=== PATIENT | female | born 1990 | race Hispanic/Latino ===

== ENCOUNTER 2019-12-28 13:08 | Inpatient (IN) ==
[2019-12-28] MEDS ORDERED: PEPCID IV PRN (14:07)
[2019-12-28] MEDS ORDERED: AMPICILLIN 2 GM in NS 100 ML IV ONE (14:07)
[2019-12-28] MEDS ORDERED: STADOL IV PRN (14:07)
[2019-12-28] MEDS ORDERED: KEFZOL 2 GM/D5W 2 GM/50 ML IVPB IV PRN (14:07)
[2019-12-28] MEDS ORDERED: PEPCID PO PRN ×2 (14:07)
[2019-12-28] MEDS ORDERED: REGLAN PO PRN (14:07)
[2019-12-28] MEDS ORDERED: ZOFRAN IV PRN (14:07)
[2019-12-28] MEDS ORDERED: LR 500 ML IV ONE (14:07)
[2019-12-28] MEDS ORDERED: TYLENOL PO PRN (14:07)
[2019-12-28] MEDS ORDERED: PITOCIN 30 UNITS/NS 30 UNIT/500 ML IV.SOLN IV SCH ×2 (14:15→16:30)
[2019-12-28] MEDS ORDERED: LR 1,000 ML IV SCH (14:15)
[2019-12-28] MEDS ORDERED: SODIUM CHLORIDE 0.9% INJ SCH (14:15)
[2019-12-28 14:30] LABS: URINE SOURCE VOIDED
[2019-12-28 14:58] LABS: BASO# 0.03 X1000 (0.0-0.2); BASO% 0.2 % (0.0-0.8); EOS# 0.28 X1000 (0.0-0.7); EOS% 2.3 % (0.0-10.0); HEMATOCRIT 38.1 % (37.0-47.0); HEMOGLOBIN 12.8 g/dL (12.0-16.0); IMM GRAN# 0.05 X1000 (0.0-0.04); IMM GRAN% 0.4 % (0.0-0.5); LYMPH# 3.69 X1000 (1.2-3.4); LYMPH% 30.1 % (20.5-51.1); MCH 27.4 PG (27-31); MCHC 33.6 g/dL (33-37); MCV 81.6 FL (81-99); MONO# 1.23 X1000 (0.11-0.59); MPV 11.7 FL (7.4-10.4); NEUT# 6.96 X1000 (1.4-6.5); PLT 348 X1000 (130-400); RBC 4.67 XMIL (4.2-5.4); RDW 16.5 % (11.5-14.5); WBC 12.24 X1000 (4.8-10.8)
[2019-12-28] MEDS ORDERED: XYLOCAINE-MPF 1% INJ ONE (15:01)
[2019-12-28 15:02] LABS: BILIRUBIN URINE NEGATIVE (NEGATIVE); BLOOD URINE MODERATE (NEGATIVE); COLOR YELLOW; GLUCOSE URINE NEGATIVE (NEGATIVE); KETONE URINE NEGATIVE (NEGATIVE); LEUKOCYTES URINE NEGATIVE (NEGATIVE); NITRITE URINE NEGATIVE (NEGATIVE); PROTEIN URINE NEGATIVE (NEGATIVE); SP GRAVITY URINE 1.021; TURBIDITY URINE CLEAR (CLEAR); UROBILINOGEN URINE NORMAL (NORMAL)
[2019-12-28 15:14] LABS: UR AMPHETAMINES QUAL NONE DETECTED (NONE DETECT); UR BARBITUATES QUAL NONE DETECTED (NONE DETECT); UR BENZODIAZEPIN QUAL NONE DETECTED (NONE DETECT); UR CANNABINOIDS QUAL NONE DETECTED (NONE DETECT); UR COCAINE QUAL NONE DETECTED (NONE DETECT); UR METHADONE QUAL NONE DETECTED (NONE DETECT); UR OPIATES QUAL NONE DETECTED (NONE DETECT); UR OXYCODONE QUAL NONE DETECTED (NONE DETECT); UR PCP QUAL NONE DETECTED (NONE DETECT)
[2019-12-28] MEDS ORDERED: PITOCIN 20 UNITS/NS 20 UNITS/1,000 ML IV.SOLN ONE (15:48)
[2019-12-28] MEDS ORDERED: PERI MEDS (DERMOPLAST/NUPERCAINAL/TUCKS) MISC PRN (16:23)
[2019-12-28] MEDS ORDERED: BOOSTRIX VACCINE IM ONE (16:23)
[2019-12-28] MEDS ORDERED: NORCO-10 PO PRN (16:23)
[2019-12-28] MEDS ORDERED: BENADRYL IV PRN (16:23)
[2019-12-28] MEDS ORDERED: XYLOCAINE-MPF 1% INJ PRN (16:23)
[2019-12-28] MEDS ORDERED: M-M-R II VACCINE SUBQ ONE (16:23)
[2019-12-28] MEDS ORDERED: MINERAL OIL PO PRN (16:23)
[2019-12-28] MEDS ORDERED: BENADRYL PO PRN (16:23)
[2019-12-28] MEDS ORDERED: ATARAX PO PRN (16:23)
[2019-12-28] MEDS ORDERED: HYDROXYZINE IM PRN (16:23)
[2019-12-28] MEDS ORDERED: PITOCIN IM PRN (16:23)
[2019-12-28] MEDS ORDERED: AMBIEN PO PRN (16:23)
[2019-12-28] MEDS ORDERED: CYTOTEC PO PRN (16:23)
[2019-12-28] MEDS ORDERED: PITOCIN 20 UNITS/NS 20 UNITS/1,000 ML IV.SOLN IV SCH (16:30)
--- NOTE | 2019-12-28 18:04 | HISTORY AND PHYSICAL ---
HISTORY OF PRESENT ILLNESS: The patient is a 29-year-old 4, para 2, at 38.5 weeks gestation who presents to Labor and Delivery in active phase labor. She presented with painful uterine contractions at 4 cm dilated, 100% effaced, intact membranes. The patient is group B strep positive. Two vaginal deliveries in the past.Pt is known to be GBS positive. PREVIOUS MEDICAL HISTORY: Asthma. PREVIOUS SURGICAL HISTORY: Negative. ALLERGIES TO MEDICINES: None. MEDICINES: vitamins and albuterol inhaler. SOCIAL HISTORY: Negative for smoking, alcohol, or drugs. OB HISTORY: Pertinent for 2 normal spontaneous vaginal deliveries at term. Current , group B strep positive. FAMILY HISTORY: Negative for diabetes, hypertension, or heart disease. REVIEW OF SYSTEMS: Negative for chest pain, shortness of breath, headache, cough, runny nose, fever, sore throat. PHYSICAL EXAMINATION: GENERAL: Shows a well-developed, well-nourished woman appearing her stated age, in acute distress secondary to labor. HEENT: Grossly normal. LUNGS: Breathing unlabored. HEART: Regular rate and rhythm. ABDOMEN: Gravid. PELVIC: Exam is complete. Membranes ruptured at the perineum. EXTREMITIES: Without clubbing, cyanosis, or edema. ASSESSMENT: A 29-year-old 4, para 2, at term, in active phase labor. 1. Group B Streptococcus positive. She received 1 dose of group B strep prophylaxis prior to delivery. 2. well-being reassured. Category 1 tracing throughout. 3. Anticipate normal spontaneous vaginal delivery. Estimated weight 3500 g. [facility]
[2019-12-28] MEDS ORDERED: AMPICILLIN 1 GM in NS 50 ML IV SCH (18:09)
--- NOTE | 2019-12-28 18:24 | OPERATIVE NOTE ---
PROCEDURE: Normal spontaneous vaginal delivery. The patient is a 29-year-old, 4, para 2, at term who presented in active phase labor at 4 to 5 cm dilated, made rapid progress, receiving only 1 dose of antibiotic before becoming completely dilated. Membranes were ruptured spontaneously at complete and +3 and the patient delivered with no anesthesia over second-degree laceration. The infant delivered without difficulty complication and handed to the maternal abdomen. The cord was clamped x2 and cut. The placenta delivered intact, three-vessel cord spontaneously. The perineum is repaired with 2-0 chromic in the usual fashion. Post procedure the perineum was inspected and intact and hemostatic. ESTIMATED BLOOD LOSS: 300 mL. Apgars 9 and 9, 7 pounds 12 ounces.
[2019-12-28] MEDS: MOTRIN PO PRN (19:55)
[2019-12-28] MEDS: PERICOLACE PO SCH (22:53)
[2019-12-29] MEDS: NORCO-5 PO PRN ×2 (00:38→23:18)
[2019-12-29 04:49] LABS: BASO# 0.03 X1000 (0.0-0.2); BASO% 0.2 % (0.0-0.8); EOS# 0.29 X1000 (0.0-0.7); EOS% 2.2 % (0.0-10.0); HEMATOCRIT 32.6 % (37.0-47.0); IMM GRAN# 0.06 X1000 (0.0-0.04); IMM GRAN% 0.5 % (0.0-0.5); LYMPH# 3.36 X1000 (1.2-3.4); LYMPH% 25.7 % (20.5-51.1); MCH 27.9 PG (27-31); MCHC 33.7 g/dL (33-37); MCV 82.7 FL (81-99); MONO# 1.13 X1000 (0.11-0.59); MONO% 8.7 % (1.7-9.3); MPV 11.4 FL (7.4-10.4); NEUT# 8.19 X1000 (1.4-6.5); NEUT% 62.7 % (42.2-75.2); PLT 299 X1000 (130-400); RBC 3.94 XMIL (4.2-5.4); RDW 16.3 % (11.5-14.5); WBC 13.06 X1000 (4.8-10.8)
[2019-12-29] MEDS: MOTRIN PO PRN ×2 (07:20→16:30)
--- NOTE | 2019-12-29 08:09 | OB/GYN PROGRESS NOTE ---
- Subjective 29 yo PPD#1 s/p at 38w5d with asthma, GBS + Patient seen and examined. She states pain is controlled. She notes normal lochia. She is ambulating and voiding without difficulty. She is tolerating a regular diet, denies nausea/vomiting. She is bottle feeding. OB Physical Exam Vital Signs - 8 hr 12/29/19 04:00 Temperature 97.6 F Pulse Rate 69 Respiratory Rate 18 Blood Pressure 103/65 O2 Sat by Pulse Oximetry 96 - CONSTITUTIONAL General Appearance: appears well, alert, no apparent distress - EYES Eyes: PERRL/EOMI - HEAD, EARS, NOSE, MOUTH & THROAT HENMT: normocephalic/atraumatic - RESPIRATORY Respiratory: lungs clear, no respiratory distress - CARDIOVASCULAR Cardiovascular: regular rate, rhythm - GASTROINTESTINAL (ABDOMEN) Abdominal Exam: normal bowel sounds, non tender, soft, other (fundus firm, below umbilicus) - MUSCULOSKELETAL Extremity: normal range of motion, non-tender, no calf tenderness - SKIN Integumentary: normal color - NEUROLOGIC Neurologic: grossly normal - PSYCHIATRIC Psych/Mental Status: normal mood/affect Active Medications Generic Name Dose Route Start Last Admin Trade Name Freq PRN Reason Stop Dose Admin Acetaminophen 650 mg 12/28/19 14:07 Tylenol PO Q4-6H PRN PRN Headache Hydrocodone Bitart/Acetaminophen 1 each 12/28/19 16:23 12/29/19 00:38 [place]-5 PO 1 each Q3-4H PRN PRN Administration Pain (1-6 on Pain Scale) Hydrocodone Bitart/Acetaminophen 1 each 12/28/19 16:23 [place]-10 PO Q3-4H PRN PRN Pain (7-10 on Pain Scale) Benzocaine 1 each 12/28/19 16:23 12/28/19 19:55 [facility]ole Meds (Dermoplast/Nupercainal/Tucks) MISC 1 applicatn 3-4XDAY PRN PRN Administration episiotomy/hemorrhoids Butorphanol Tartrate 2 mg 12/28/19 14:07 Stadol IV PRN PRN Pain Diphenhydramine HCl 12.5 mg 12/28/19 16:23 Benadryl IV Q4H PRN PRN Itching Diphenhydramine HCl 25 mg 12/28/19 16:23 Benadryl PO Q4H PRN PRN Itching Famotidine 40 mg 12/28/19 14:07 Pepcid PO Q12H PRN PRN GI upset or indigestion Famotidine 20 mg 12/28/19 14:07 Pepcid IV Q12H PRN PRN GI upset or indigestion Famotidine 20 mg 12/28/19 14:07 Pepcid PO ONCE PRN PRN section Hydroxyzine HCl 50 mg 12/28/19 16:23 Atarax PO Q3-4H PRN PRN Nausea Hydroxyzine HCl 50 mg 12/28/19 16:23 Hydroxyzine IM Q3-4H PRN PRN Nausea Lactated Ringer's 1,000 mls @ 0 mls/hr 12/28/19 14:15 12/28/19 14:30 Lr IV 500 mls/hr .Q0M TAMMY Administration As Directed Cefazolin Sodium/Dextrose 2 gm in 50 mls @ 50 mls/hr 12/28/19 14:07 Kefzol 2 Gm/D5w IV ONCE PRN PRN section Oxytocin/Sodium Chloride 20 units in 1,000 mls @ 0 mls/hr 12/28/19 16:30 Pitocin 20 Units/Ns IV .Q0M TAMMY As Directed Ibuprofen 800 mg 12/28/19 16:23 12/29/19 07:20 Motrin PO 800 mg Q8H PRN PRN Administration cramping Lidocaine HCl 30 ml 12/28/19 16:23 Xylocaine-Mpf 1% INJ PRN PRN Perineal repair Metoclopramide HCl 10 mg 12/28/19 14:07 Reglan PO ONCE PRN PRN section Mineral Oil 30 ml 12/28/19 16:23 Mineral Oil PO PRN PRN Perineal massage Misoprostol 800 microgm 12/28/19 16:23 Cytotec PO PRN PRN Severe bleeding Ondansetron HCl 4 mg 12/28/19 14:07 Zofran IV PRN PRN Nausea Oxytocin 20 unit 12/28/19 16:23 Pitocin IM PRN PRN Severe bleeding Senna/Docusate Sodium 1 each 12/28/19 21:00 12/28/19 22:53 Pericolace PO 1 each QHS TAMMY Administration Sodium Chloride 5 - 10 ml 12/28/19 14:15 Sodium Chloride 0.9% INJ DIRECTED TAMMY Zolpidem Tartrate 10 mg 12/28/19 16:23 Ambien PO HS PRN PRN Sleep Laboratory Results - last 24 hr 12/28/19 12/28/19 12/28/19 13:15 13:15 14:07 WBC 12.24 H RBC 4.67 Hgb 12.8 Hct 38.1 MCV 81.6 MCH 27.4 MCHC 33.6 RDW Std Deviation 16.5 H Plt Count 348 MPV 11.7 H Immature Gran % (Auto) 0.4 Neut % (Auto) 57.0 Lymph % (Auto) 30.1 [place] % (Auto) 10.0 H Eos % (Auto) 2.3 Baso % (Auto) 0.2 Immature Gran # (Auto) 0.05 H Neut # (Auto) 6.96 H Lymph # (Auto) 3.69 H [place] # (Auto) 1.23 H Eos # (Auto) 0.28 Baso # (Auto) 0.03 Urine Source VOIDED Urine Color YELLOW Urine Turbidity CLEAR Urine pH 6.0 Ur Specific Webb 1.021 Urine Protein NEGATIVE Ur Glucose (Stick) NEGATIVE Ur Ketones (Stick) NEGATIVE Urine Blood MODERATE A Urine Nitrite NEGATIVE Urine Bilirubin NEGATIVE Urobilinogen Dipstick NORMAL Urine Leukocytes NEGATIVE Urine Opiates Screen NONE DETECTED Ur Oxycodone Screen NONE DETECTED Ur Methadone, Qual NONE DETECTED Ur Barbiturates Screen NONE DETECTED Ur Phencyclidine Scrn NONE DETECTED Ur Amphetamines Screen NONE DETECTED U Benzodiazepines Scrn NONE DETECTED Urine Cocaine Screen NONE DETECTED U Cannabinoids Screen NONE DETECTED RPR 12/28/19 12/29/19 14:39 04:35 WBC 13.06 H RBC 3.94 L Hgb 11.0 L Hct 32.6 L MCV 82.7 MCH 27.9 MCHC 33.7 RDW Std Deviation 16.3 H Plt Count 299 MPV 11.4 H Immature Gran % (Auto) 0.5 Neut % (Auto) 62.7 Lymph % (Auto) 25.7 [place] % (Auto) 8.7 Eos % (Auto) 2.2 Baso % (Auto) 0.2 Immature Gran # (Auto) 0.06 H Neut # (Auto) 8.19 H Lymph # (Auto) 3.36 [place] # (Auto) 1.13 H Eos # (Auto) 0.29 Baso # (Auto) 0.03 Urine Source Urine Color Urine Turbidity Urine pH Ur Specific Webb Urine Protein Ur Glucose (Stick) Ur Ketones (Stick) Urine Blood Urine Nitrite Urine Bilirubin Urobilinogen Dipstick Urine Leukocytes Urine Opiates Screen Ur Oxycodone Screen Ur Methadone, Qual Ur Barbiturates Screen Ur Phencyclidine Scrn Ur Amphetamines Screen U Benzodiazepines Scrn Urine Cocaine Screen U Cannabinoids Screen RPR NON-REACTIVE OB Assessment & Plan (1) Status post vaginal delivery Status: Acute Plan: 29 yo PPD#1 s/p at 38w5d with asthma, GBS + 1. HD stable, afebrile, PP hgb 11 2. Routine PP care 3. Encourage ambulation 4. She is bottle feeding
[2019-12-29] MEDS: PERICOLACE PO SCH (20:07)
[2019-12-30] MEDS: MOTRIN PO PRN (07:01)
[2019-12-30 07:46] VITALS: BP 112/80
[2019-12-30] MEDS ORDERED: FLU VACCINE IM ONE (08:59)
== END 2019-12-30 15:50 | disposition home or self-care (01) | DRG 807 ==
LOC: OPLD 13:08 → LD 13:09
PROVIDERS: ADMIT Obstetrics & Gynecology; ATTEND Obstetrics & Gynecology